=== PATIENT | female | born 1990 | race Caucasian/White ===

== ENCOUNTER 2017-02-13 21:57 | Emergency (ER) | payer MEDICAID, OTHER ==
[2017-02-13] MEDS ORDERED: Acetaminophen/Codeine 30-300mg Tablet ONE (23:01)
== END 2017-02-13 23:10 | disposition home or self-care (01) ==
LOC: MADERS 21:57
DX: K02.9 Dental caries, unspecified (principal); F17.210 Nicotine dependence, cigarettes, uncomplicated

== ENCOUNTER 2017-10-23 10:57 | Emergency (ER) | payer SELFPAY | END 2017-10-23 11:23 | disposition home or self-care (01) | LOC: MADERS 10:57 | DX: J40 Bronchitis, not specified as acute or chronic (principal); J02.9 Acute pharyngitis, unspecified; F17.210 Nicotine dependence, cigarettes, uncomplicated | CPT/HCPCS: 99283 ==

== ENCOUNTER 2018-03-14 13:56 | Emergency (ER) | payer SELFPAY ==
[2018-03-14] MEDS ORDERED: Phenergan/Codeine 10-6.25mg/5ml UDCUP ONE (14:54)
[2018-03-14] MEDS ORDERED: Ketorolac Tromethamine 30 MG/ML VIAL ONE (14:54)
[2018-03-14] MEDS ORDERED: Dexamethasone 10 MG/ML VIAL ONE (14:54)
[2018-03-14] MEDS ORDERED: cefTRIAXone\\ROCEPHIN 1 GM VIAL ONE (14:54)
[2018-03-14] MEDS ORDERED: methylPREDNISolone Sod Succ/PF 125 MG/2 ML VIAL ONE (14:54)
[2018-03-14] MEDS ORDERED: Ondansetron ODT 4 MG TAB ONE (14:54)
--- NOTE | 2018-03-14 14:54 | RAD ---
UPRIGHT PORTABLE CHEST ONE VIEW: History: 27-year-old female with history of chest pain. Comparison: 04-15-15 FINDINGS: Heart size is normal. The lungs are clear. IMPRESSION: No acute intrathoracic disease. POS: OFF
[2018-03-14 15:02] LABS: #Lymphocytes 0.9 thou/uL (1.20-3.40); #Monocytes 0.4 thou/uL (0.11-0.59); #Neutrophils 10.9 thou/uL (1.40-6.50); %Basophils 0.3 % (0.0-1.0); %Eosinophils 0.3 % (0.0-10.0); %Lymphocytes 7.6 % (21.0-51.0); %Monocytes 3.1 % (0.0-10.0); %Neutrophils 88.7 % (42.0-75.0); Hemoglobin 15.2 g/dL (12.0-16.0); Mean Corpuscular HGB CONC 33.2 g/dL (32.0-36.0); Mean Corpuscular Volume 90.5 fl (81.0-99.0); Mean Platelet Volume 7.5 fL (7.4-10.4); Platelet Count 228 thou/uL (130-400); RBC Distribution Width 11.7 % (11.5-14.5); Red Blood Cell (RBC) Count 5.05 mill/uL (4.20-5.40); White Blood Cell (WBC) Count 12.2 thou/uL (4.8-10.8)
[2018-03-14 15:15] LABS: Bilirubin Negative (Negative); Blood, Urine Small (Negative); Clarity Clear (Clear); Glucose, Urine (Dipstick) Negative (Negative); Leukocyte Trace (Negative); Nitrite Negative (Negative); Protein, Urine (Dipstick) Negative (Neg-Trace); Urobilinogen 0.2 mg/dL (0.2-1.0)
[2018-03-14] MEDS ORDERED: Sodium Chloride 0.9% 1,000 ML BAG ONE (15:18)
[2018-03-14 15:20] LABS: ALT (SGPT) 9 U/L (8-55); AST (SGOT) 11 U/L (5-34); Albumin 4.6 g/dL (3.5-5.0); Alkaline Phosphatase 74 U/L (40-150); Anion Gap 18 mmol/L (10-20); BHCG - Serum Negative (NEGATIVE); BUN (Urea Nitrogen) 5 mg/dL (7.0-18.7); Bilirubin, Total 0.7 mg/dL (0.2-1.2); Calc. Creatinine Clearance 0 mL/min (70-130); Calcium 9.6 mg/dL (7.8-10.44); Carbon Dioxide 18 mmol/L (22-29); Chloride 108 mmol/L (98-107); Estimated GFR-MDRD Greater than 90; Glucose 88 mg/dL (70-105); Potassium 3.7 mmol/L (3.5-5.1); Pregs Control Background? CLEAR/WHITE (CLR/WHITE); Pregs Control Bar Appear? YES (CONTROL BAR); Protein, Total 7.6 g/dL (6.0-8.3); Sodium 140 mmol/L (136-145)
[2018-03-14 15:32] LABS: Bacteria/HPF Rare-Few HPF (None Seen); Crystals/HPF RARE CA OXALATE HPF (Negative)
== END 2018-03-14 16:40 | disposition home or self-care (01) ==
LOC: MADERS 13:56
DX: J20.9 Acute bronchitis, unspecified (principal); F17.210 Nicotine dependence, cigarettes, uncomplicated
CPT/HCPCS: 36415; 71045; 80053; 81001; 84703; 85025; 85652; 87081; 87086; 87430; 87804; 96361; 96374; 96375; J0696; J1100; J1885; J2930; J7050; Q0162

== ENCOUNTER 2018-03-17 10:58 | Emergency (ER) | payer SELFPAY ==
[2018-03-17] MEDS ORDERED: Dexamethasone 10 MG/ML VIAL ONE (12:06)
--- NOTE | 2018-03-17 12:54 | RAD ---
PA AND LATERAL CHEST: Indication: History of cough. Comparison: 01-26-15, 03-14-18 FINDINGS: No airspace consolidation or pleural effusion is grossly evident. Heart size within normal limits. No pleural effusion or pneumothorax is evident. No acute osseous abnormality is evident. IMPRESSION: No definite acute cardiopulmonary abnormality. POS: [facility]
== END 2018-03-17 13:05 | disposition home or self-care (01) ==
LOC: MADERS 10:58
DX: J20.9 Acute bronchitis, unspecified (principal); F17.210 Nicotine dependence, cigarettes, uncomplicated
CPT/HCPCS: 71046; 96372; J1100; J7620

== ENCOUNTER 2018-08-14 05:59 | Emergency (ER) | payer SELFPAY ==
[2018-08-14] MEDS ORDERED: predniSONE 20 MG TAB ONE (06:16)
[2018-08-14] MEDS ORDERED: diphenhydrAMINE 25 MG CAP ONE (06:16)
[2018-08-14] MEDS ORDERED: Famotidine 20 MG TAB ONE (06:16)
== END 2018-08-14 06:42 | disposition home or self-care (01) ==
LOC: MADERS 05:59
DX: L50.0 Allergic urticaria (principal); F17.210 Nicotine dependence, cigarettes, uncomplicated
CPT/HCPCS: 99282; J7506

== ENCOUNTER 2019-01-21 06:24 | Emergency (ER) | payer SELFPAY ==
[2019-01-21] MEDS ORDERED: predniSONE 20 MG TAB ONE (06:44)
== END 2019-01-21 06:51 | disposition home or self-care (01) ==
LOC: MADERS 06:24
DX: R21 Rash and other nonspecific skin eruption (principal); F17.210 Nicotine dependence, cigarettes, uncomplicated
CPT/HCPCS: 99282

== ENCOUNTER 2019-12-28 03:35 | Emergency (ER) | payer OTHER, SELFPAY ==
[2019-12-28] MEDS ORDERED: predniSONE 20 MG TAB ONE (03:48)
[2019-12-28] MEDS ORDERED: diphenhydrAMINE 25 MG CAP ONE (04:00)
[2019-12-28] MEDS ORDERED: Famotidine 20 MG TAB ONE (04:00)
== END 2019-12-28 04:52 | disposition home or self-care (01) ==
LOC: MADERS 03:35
DX: L50.0 Allergic urticaria (principal); F17.210 Nicotine dependence, cigarettes, uncomplicated
CPT/HCPCS: 99283; J7512; Q0163

== ENCOUNTER 2020-11-15 22:18 | Emergency (ER) | payer SELFPAY ==
[2020-11-15] MEDS ORDERED: Loperamide HCl 2 MG CAP ONE (22:39)
[2020-11-15] MEDS ORDERED: Prochlorperazine 10 MG/2 ML VIAL ONE (22:40)
[2020-11-16 17:25] LABS: SARS-CoV-2 MS2 Positive; SARS-CoV-2 N Gene Negative; SARS-CoV-2 S Gene Negative; SARS-CoV-2 by NAA Not Detected (NotDetected); SARS-CoV-2 orf1ab Negative
== END 2020-11-15 22:44 | disposition home or self-care (01) ==
LOC: MADERS 22:18
DX: K52.9 Noninfective gastroenteritis and colitis, unspecified (principal); R09.81 Nasal congestion; R43.8 Other disturbances of smell and taste; Z20.822 Contact with and (suspected) exposure to COVID-19
CPT/HCPCS: 87635; 96372; 99284; J0780; U0003; U0005

== ENCOUNTER 2024-07-14 19:28 | Emergency (ER) | payer OTHER, SELFPAY ==
[2024-07-14] MEDS ORDERED: Ibuprofen 200 MG TAB ONE (19:38)
[2024-07-14] MEDS ORDERED: HYDROcodone/Acetaminophen 10/325 mg Tablet ONE (20:13)
== END 2024-07-14 20:26 | disposition home or self-care (01) ==
LOC: MADERS 19:28
DX: S40.011A Contusion of right shoulder, initial encounter (principal); V89.2XXA Person injured in unspecified motor-vehicle accident, traffic, initial encounter
CPT/HCPCS: 99284